=== PATIENT | female | born 2000 | race Caucasian/White ===

== ENCOUNTER → 2021-10-22 09:17 | Outpatient (CLI) | payer OTHER, SELFPAY ==
[2021-10-22 13:19] LABS: Urine N gonorrhoeae NOT DETECTED
[2021-10-22 13:49] LABS: Urine Chlamydia NOT DETECTED
== END ==
PROVIDERS: PCP Family Medicine; Visit Provider Family Medicine
DX: A74.9 Chlamydial infection, unspecified (principal)
CPT/HCPCS: 87491; 87591

== ENCOUNTER → 2022-07-13 15:06 | Outpatient (CLI) | payer OTHER, SELFPAY ==
[2022-07-13 17:14] LABS: Add Manual Diff / Slide Review NO; Basophils Absolute Auto 0 /uL (0-100); Basophils Percent Auto 0.5 % (0-2); Eosinophils Absolute Auto 200 /uL (0-450); Eosinophils Percent Auto 3.9 % (2-4); Hematocrit 39.2 % (36-46); Hemoglobin 13.7 g/dL (12.0-16.0); Lymphocytes Absolute Auto 1800 /uL (1100-4500); Lymphocytes Percent Auto 36.5 % (25-40); Mean Corpuscular HGB Conc 34.8 % (30-36); Mean Corpuscular Hemoglobin 31.6 PG (26-34); Mean Corpuscular Volume 90.7 fL (80-100); Monocytes Absolute Auto 200 /uL (0-900); Monocytes Percent Auto 4.8 % (3-14); Neutrophils Absolute Auto 2700 /uL (1500-7000); Neutrophils Percent Auto 54.3 % (50-75); Platelet Count 181 X10^3/uL (150-400); Red Blood Cell Count 4.33 X10^6/uL (4.0-5.2); Red Cell Distribution Width 12.7 % (11.6-14.8)
[2022-07-13 17:34] LABS: HEMOLYSIS < 15 (0-50); Iron 73 ug/dL (37-170)
[2022-07-13 17:40] LABS: BUN Creatinine Ratio 10.8 (6-22); Blood Urea Nitrogen 7 mg/dL (7-17); Carbon Dioxide 27 mmol/L (22-32); Chloride 101 mmol/L (98-107); Estimated Glomerular Filt Rate > 60 mL/min (>60); Glucose 93 mg/dL (70-100); HEMOLYSIS < 15 (0-50); Potassium 3.8 mmol/L (3.4-5.1); Sodium 137 mmol/L (137-145)
[2022-07-13 17:46] LABS: Percent Iron Saturation 20 % (15-50); Total Iron Binding Capacity 359 ug/dL (265-497); Transferrin 262 mg/dL (206-381)
[2022-07-13 18:13] LABS: TSH w/ Reflex to FT4 1.17 uIU/mL (0.47-4.68)
[2022-07-13 18:34] LABS: Vitamin B12 351 pg/mL (239-931)
== END ==
PROVIDERS: PCP Family Medicine; Referring Provider Physician Assistant; Visit Provider Physician Assistant
DX: R63.0 Anorexia (principal); E53.8 Deficiency of other specified B group vitamins; D50.8 Other iron deficiency anemias
CPT/HCPCS: 36415; 80048; 82607; 83540; 83550; 84443; 85025

== ENCOUNTER 2023-06-26 18:02 | Emergency (ER) | payer OTHER, SELFPAY ==
[2023-06-26] VITALS (7 sets, daily range): BP systolic 108–131; BP diastolic 55–68; PULSE 76–108; RESP 14–18; TEMP 36.8; O2SAT 96–100; BMI 19.5
--- NOTE | 2023-06-26 18:22 | ED.ABDPAIN ---
HPI - Abdominal Pain General Chief Complaint: Abdominal Pain Stated Complaint: stomach pain Time Seen by Provider: 06/26/23 18:04 Source: patient Mode of arrival: Ambulatory History of Present Illness HPI narrative: 22-year-old female presents by private vehicle from home for 1 day of lower pelvic pain that is beginning to radiate upwards into her abdomen, particularly on the right-hand side. Pain is cramping in nature and constant. Patient told nursing staff that pain started after sexual intercourse. Patient was able to take Tylenol last night in order to sleep, however throughout the day her pain has persisted and she was here today for evaluation. Reports history of IUD, denies possibility of . Related Data Home Medications Medication Instructions Recorded Confirmed levonorgestrel 17.5 mcg/24 hrs intrauterine 12/03/21 07/13/22 (5yrs) 19.5mg intrauterine device (Kyleena) Previous Rx's Medication Instructions Recorded hydroxyzine pamoate 25 mg capsule 25 mg PO DAILY PRN nausea #30 caps 07/13/22 hydrocodone 5 mg-acetaminophen 325 1 tab PO Q8H PRN pain #10 tabs 06/26/23 mg tablet Allergies Allergy/AdvReac Type Severity Reaction Status Date / Time No Known Drug Allergies Allergy Verified 07/13/22 14:15 Review of Systems Review of Systems Narrative: See HPI Patient History Social History housing: house seatbelt use: always helmet use: Yes water heater temp set < 120 deg: Yes working smoke detector in home: Yes fire extinguisher in home: Yes carbon monox detector in home: No firearms in home: No Smoking Status: Never smoker second hand exposure: No alcohol intake: never substance use type: does not use well-balanced diet: daily or most days daily servings fruits/ve-4 caffeine: Yes Smoking Status: Never smoker alcohol intake frequency: a few times a month Substance Use Type: marijuana Exam Initial Vital Signs Initial Vital Signs: Vital Signs Temperature 98.2 F 06/26/23 18:04 Pulse Rate 108 H 06/26/23 18:04 Respiratory Rate 18 06/26/23 18:04 Blood Pressure 131/57 L 06/26/23 18:04 Pulse Oximetry 100 06/26/23 18:04 Oxygen Delivery Method Room Air 06/26/23 18:04 Const: Awake, alert, uncomfortable, in pain Cardiac: Tachycardia, regular rhythm RESP: unlabored, clear bilaterally, no wheezing GI: Soft, tenderness to both light and deep palpation in bilateral lower quadrants and right upper quadrant Skin: Warm, Dry, intact, no rashes Neuro: AO x3, CN II-XII grossly intact, moves all extremities Course Orders Ordered: ED Orders 06/26/23 18:21 US abdomen limited Stat 06/26/23 18:23 Urine Culture Stat Urine Microscopic Stat 06/26/23 18:28 CBC Auto Diff [Complete Blood Count AUTO DIFF] Stat CMP [Comprehensive Metabolic Panel] Stat Lactate (Lactic Acid) Stat Lipase Stat 06/26/23 19:05 CT abdomen pelvis w con Stat US pelvic complete Stat Discontinued Medications Hydrocodone Bitart/Acetaminophen (Hydrocodone/Acet 5/325 Prepack) 1 bottle MISC DIRECTED ONE Stop: 06/26/23 21:07 Last Admin: 06/26/23 21:19 Dose: 1 bottle Documented By: HAILEY Hydromorphone HCl (Hydromorphone 1 Mg Inj) 1 mg IV NOW ONE Stop: 06/26/23 19:08 Last Admin: 06/26/23 19:11 Dose: 1 mg Documented By: HAILEY Sodium Chloride (Normal Saline 0.9%) 1,000 mls @ 1,000 mls/hr IV BOLUS ONE Stop: 06/26/23 19:20 Last Infusion: 06/26/23 19:34 Dose: Infused Documented By: Admin: 06/26/23 18:41 Dose: 1,000 mls/hr Documented By: HAILEY Morphine Sulfate (Morphine 4 Mg/Ml Inj) 4 mg IV NOW ONE Stop: 06/26/23 18:22 Last Admin: 06/26/23 18:52 Dose: 4 mg Documented By: HAILEY Ondansetron HCl (Ondansetron 4 Mg Odt) 4 mg SL NOW PRN PRN Reason: Nausea And Vomiting Ondansetron HCl (Ondansetron 4 Mg/2 Ml Inj) 4 mg IV NOW PRN PRN Reason: Nausea And Vomiting Vital Signs Vital signs: Vital Signs - 8 hr 06/26/23 18:48 06/26/23 19:00 06/26/23 19:30 Pulse Rate Respiratory Rate 18 Blood Pressure 115/58 L 114/68 109/66 Pulse Oximetry Oxygen Delivery Method 06/26/23 20:06 06/26/23 20:06 06/26/23 20:30 Pulse Rate 96 H Respiratory Rate Blood Pressure 109/62 108/55 L Pulse Oximetry 100 Oxygen Delivery Method 06/26/23 20:30 06/26/23 21:24 Pulse Rate 89 76 Respiratory Rate 18 14 Blood Pressure 109/59 L Pulse Oximetry 96 97 Oxygen Delivery Method Room Air MDM - Abdominal Pain Differential Diagnosis Differential diagnosis: Likely abdominal pain, acute appendicitis and calculus of kidney Lab Data 06/26/23 18:28 06/26/23 18:28 Labs: Lab Results 06/26/23 06/26/23 Range/Units 18:23 18:28 WBC 8.5 (4.5-11.0) X10^3/uL RBC 3.92 L (4.0-5.2) X10^6/uL Hgb 12.5 (12.0-16.0) g/dL Hct 36.4 (36-46) % MCV 92.7 (80-100) fL MCH 31.8 (26-34) PG MCHC 34.3 (30-36) % RDW 13.2 (11.6-14.8) % Plt Count 196 (150-400) X10^3/uL Neut % (Auto) 84.2 H (50-75) % Lymph % (Auto) 10.9 L (25-40) % [place] % (Auto) 4.1 (3-14) % Eos % (Auto) 0.7 L (2-4) % Baso % (Auto) 0.1 (0-2) % Neut # (Auto) 7100 H (4525-5247) /uL Lymph # (Auto) 900 L (6643-3172) /uL [place] # (Auto) 400 (0-900) /uL Eos # (Auto) 100 (0-450) /uL Baso # (Auto) 0 (0-100) /uL Sodium 138 (137-145) mmol/L Potassium 3.6 (3.4-5.1) mmol/L Chloride 107 (98-107) mmol/L Carbon Dioxide 24 (22-32) mmol/L BUN 8 (7-17) mg/dL Creatinine 0.66 (0.52-1.04) mg/dL Estimated GFR > 60 (>60) mL/min BUN/Creatinine Ratio 12.1 (6-22) Glucose 105 H (70-100) mg/dL Lactate 0.8 (0.7-2.1) mmol/L Calcium 9.0 (8.4-10.2) mg/dL Total Bilirubin 1.0 (0.2-1.3) mg/dL AST 21 (14-36) IU/L ALT 12 (<35) IU/L Alkaline Phosphatase 54 (38-126) U/L Total Protein 7.4 (6.3-8.2) g/dL Albumin 4.4 (3.5-5.0) g/dL Globulin 3.0 (1.7-4.1) g/dL Albumin/Globulin Ratio 1.5 (1.0-2.8) Lipase 52 (23-300) U/L Urine RBC 0-1/hpf (0-5/HPF) Urine WBC 0-1/hpf (0-5/HPF) Ur Squamous Epith Cells 5-10 /hpf H (0-5/HPF) Amorphous Sediment 1+ Urine Bacteria Occasional (0-1) (None) Urine Mucus 2+ H (Negative) Ur Culture Indicated? Cult not indicated Vol Urine Centrifuged 10ml (spun) Point of care testing: Point of Care Testing Test Results Negative Urine Dip Bedside Urine Glucose Negative Bedside Urine Bilirubin - Negative Bedside Urine Ketone +/- 5 Urine Specific [place] 1.015 Bedside Urine Occult Blood - Negative Bedside Urine pH 8.5 Bedside Urine Protein +/- 15 Bedside Urine Urobilinogen - Negative Bedside Urine Nitrite - Negative Bedside Urine Leukocytes - Negative Esterase Imaging Data US - abdomen: Radiologist's Impression: PROCEDURE: US ABDOMEN LIMITED INDICATIONS: RUQ PAIN TECHNIQUE: Real-time scanning was performed of the abdominal and retroperitoneal organs, with image documentation. COMPARISON: None. FINDINGS: Liver: Liver is normal in size and homogeneous in echotexture. Visualized portal vein appears patent. Gallbladder: Gallbladder is normal in sonographic appearance without gallstones, gallbladder wall thickening, pericholecystic fluid, or abnormal sonographic Coates's. Biliary ducts: Intrahepatic bile ducts are non-dilated. Extrahepatic bile duct caliber measures 3 mm. Normal is 6-7 mm or less in diameter, or 10 mm or less post-cholecystectomy. Pancreas: Visualized portions of the pancreas are sonographically normal. IVC: Intrahepatic inferior vena cava is patent. Miscellaneous: Scattered ascites noted in all 4 quadrants. IMPRESSION: Scattered ascites throughout the abdomen and pelvis. Otherwise, no acute sonographic abnormalities identified in the abdomen. Dictated by: Vlad Barboza M.D. on 06/26/2023 at 20:20 Approved by: Vlad Barboza M.D. on 06/26/2023 at 20:22 US - EXPANDED FUNCTION DENTAL ASSISTANT: Radiologist's Impression: PROCEDURE: US PELVIC COMPLETE INDICATIONS: LOWER PELVIC PAIN, FREE FLUID IN ABDOMEN TECHNIQUE: Real-time scanning was performed of the pelvic organs, with image documentation. Additional endovaginal scanning was necessary due to incomplete visualization of the adnexal and endometrial structures by transabdominal scanning. COMPARISON: None. FINDINGS: Uterus: Uterus is anteverted and normal in size at 7.4 x 3.3 x 4.5 cm. The myometrium is homogeneous. The endometrium measures 4 mm combined thickness. An intrauterine device is identified within the endometrial cavity and appears appropriately positioned. Ovaries: The right ovary measures 2.5 x 2.0 x 2.8 cm, with a calculated ovarian volume of 7.3 cc. There is a simple 2.0 x 1.3 x 2.0 cm simple right ovarian cyst. There is normal vascular flow identified in the right ovary. The left ovary and adnexa were not well visualized. A definite left ovary could not be delineated definitively. The most likely candidate appears enlarged with no detectable vascular flow. This measures approximately 7.8 x 3.7 x 7.7 cm. Other: Large amount of scattered pelvic free fluid more substantial on the right side versus the left. IMPRESSION: 1. A definite left ovary/adnexa could not be delineated. Most likely candidate appears to be abnormal and enlarged measuring 7.8 x 3.7 x 7.7 cm. No visualized vascular flow. Etiologies include possible left ovarian torsion versus large tubal ovarian abscess. Consider further evaluation with cross-sectional imaging. 2. Large amount of scattered pelvic free fluid more substantial on the right side. 3. Unremarkable appearance of the right ovary with normal vascular flow. 4. Normal evaluation of the uterus with appropriate positioning of intrauterine device. Preliminary findings were reported to the ordering physician by the information technology consultant at time of study completion. We strive to produce accurate, complete, and clear reports of imaging services. To assist us in improving patient care, this report was composed using standard report templates and voice recognition software. Therefore, it may contain abnormal punctuation, insertions and/or omissions. Occasional wrong-word or sound-alike substitutions may occur. Though we review the report and make efforts to correct it, we do recommend that the report be read carefully in proper context to recognize any text inaccuracies. Dictated by: Vlad Barboza M.D. on 06/26/2023 at 20:22 Approved by: Vlad Barboza M.D. on 06/26/2023 at 20:28 CT scan - abdomen/pelvis: Radiologist's Impression: PROCEDURE: CT ABDOMEN PELVIS W CON INDICATIONS: LOWER ABD PAIN, FREE FLUID PER US TECHNIQUE: After the administration of intravenous contrast, axial sections acquired from the lung bases to the pubic symphysis. Coronal and sagittal reformats were performed. For radiation dose reduction, the following was used: automated exposure control, adjustment of mA and/or kV according to patient size. COMPARISON: None. FINDINGS: Image quality: Diagnostic. Lower Chest: No significant findings. ABDOMEN: Liver: No solid mass. Gallbladder: No radiopaque gallstones or wall thickening. Biliary ducts: No biliary dilation. Pancreas: No ductal dilation. Spleen: Size is within normal limits. Adrenal Glands: No adrenal nodules. Kidneys and Ureters: No hydronephrosis. No solid mass. No complex renal cystic lesion which requires follow up. Stomach and Bowel: Normal colonic caliber, without significant wall thickening. Peritoneum: Small to moderate volume ascites. No free air. Ventral Wall: No significant ventral hernia. Abdominal Nodes: No retroperitoneal or mesenteric adenopathy by size criteria. Vessels: Aorta and inferior vena cava are normal in size. PELVIS: Pelvic Organs: Intrauterine device in place. Complex higher attenuation structure in the left adnexa measuring 7.3 x 9.4 x 3.9 cm is not well evaluated better seen on prior pelvic ultrasound.. Bladder: No bladder wall thickening, accounting for underdistention. Pelvic Nodes: No enlarged lymph nodes. Miscellaneous: No inguinal hernias are seen. Bones: No aggressive osseous abnormality. IMPRESSION: 1. Complex high attenuation structure within the left adnexa is better evaluated on prior pelvic ultrasound. 2. Small to moderate volume ascites. Dictated by: Lorenzo Albert M.D. on 06/26/2023 at 20:57 Approved by: Lorenzo Albert M.D. on 06/26/2023 at 21:02 MDM Narrative Medical decision making narrative: Pelvic cramping and pain after sexual intercourse. Patient does appear to be very uncomfortable and has fairly significant tenderness to palpation on abdominal exam. Pain meds, laboratory work, imaging ordered. vascular technician pulled me aside to tell me that the patient's gallbladder looked normal on ultrasound, however there did appear to be free fluid in the upper and lower quadrants of her abdomen. Based on patient's description of symptoms this is likely in origin and a formal pelvic ultrasound was ordered. Patient continuing to endorse pain, additional IV pain medications ordered. Right ovary appears normal on ultrasound, left ovary poorly visualized due to free fluid. CT of the abdomen and pelvis shows free fluid with no further characterization of left ovary. Case discussed with Dr. Jones of OBGYN, who came to the emergency department to assess the patient. Shared decision-making had with OBGYN in patient. Patient elected to go home with outpatient follow up scheduled at 1:00 p.m. tomorrow. She was given pain medications and counseled that if she was unable to control her pain at home she should return to the emergency department for assessment. Discharge Plan Departure Patient Disposition: Home Clinical Impression: Free fluid in pelvis, Left ovarian enlargement Instructions: DI for Ovarian Cyst Activity Restrictions/Additional Instructions: Your laboratory work was normal, you have an abnormal finding in your left ovary that is yet indeterminate, but may likely be a ruptured cyst. Use the prepack medication for pain. You may also take this with 400 mg of ibuprofen. You may take an additional tablet of Tylenol as well, making sure that your maximum daily dose of Tylenol is no more than 4000 mg. Prescriptions: New hydrocodone-acetaminophen 5-325 mg tablet 1 tab PO Q8H PRN (Reason: pain) Qty: 10 0RF No Action hydroxyzine pamoate 25 mg capsule 25 mg PO DAILY PRN (Reason: nausea) Qty: 30 1RF Kyleena 17.5 mcg/24 hrs (5 yrs) 19.5 mg intrauterine device intrauterine Rx Instructions: Inserted 11/05/21 Referrals: Deangelo Vaz MD [Primary Care Provider] - Stand Alone Forms: Patient Portal/API
[2023-06-26 18:32] LABS: RBC Urine 0-1/HPF (0-5/HPF); Urine Volume 10mL (spun)
[2023-06-26 18:33] LABS: Amorphous Sediment Urine 1+; Bacteria Urine Occasional (0-1); Culture Indicated Urine Cult Not Indicated; Mucus Urine 2+ (Negative); Squamous Epithelial Cell Urine 5-10 /HPF (0-5/HPF); WBC Urine 0-1/HPF (0-5/HPF)
[2023-06-26 18:36] LABS: Add Manual Diff / Slide Review NO; Basophils Absolute Auto 0 /uL (0-100); Basophils Percent Auto 0.1 % (0-2); Eosinophils Absolute Auto 100 /uL (0-450); Eosinophils Percent Auto 0.7 % (2-4); Hematocrit 36.4 % (36-46); Hemoglobin 12.5 g/dL (12.0-16.0); Lymphocytes Absolute Auto 900 /uL (1100-4500); Lymphocytes Percent Auto 10.9 % (25-40); Mean Corpuscular HGB Conc 34.3 % (30-36); Mean Corpuscular Hemoglobin 31.8 PG (26-34); Mean Corpuscular Volume 92.7 fL (80-100); Monocytes Absolute Auto 400 /uL (0-900); Monocytes Percent Auto 4.1 % (3-14); Neutrophils Absolute Auto 7100 /uL (1500-7000); Neutrophils Percent Auto 84.2 % (50-75); Platelet Count 196 X10^3/uL (150-400); Red Blood Cell Count 3.92 X10^6/uL (4.0-5.2); Red Cell Distribution Width 13.2 % (11.6-14.8); White Blood Cell Count 8.5 X10^3/uL (4.5-11.0)
[2023-06-26] MEDS: SODIUM CHLORIDE 0.9% 1,000 ML 1000 ML IV (18:41)
[2023-06-26 18:46] LABS: Lactate (Lactic Acid) 0.8 mmol/L (0.7-2.1)
[2023-06-26 18:47] LABS: Alanine Aminotransferase 12 IU/L (<35); Albumin 4.4 g/dL (3.5-5.0); Albumin Globulin Ratio 1.5 (1.0-2.8); Alkaline Phosphatase 54 U/L (38-126); Aspartate Aminotransferase 21 IU/L (14-36); BUN Creatinine Ratio 12.1 (6-22); Blood Urea Nitrogen 8 mg/dL (7-17); Carbon Dioxide 24 mmol/L (22-32); Chloride 107 mmol/L (98-107); Estimated Glomerular Filt Rate > 60 mL/min (>60); Glucose 105 mg/dL (70-100); HEMOLYSIS < 15 (0-50); Lipase 52 U/L (23-300); Potassium 3.6 mmol/L (3.4-5.1); Sodium 138 mmol/L (137-145); Total Protein 7.4 g/dL (6.3-8.2)
[2023-06-26] MEDS: MORPHINE 4 MG/ML INJ IV (18:52)
--- NOTE | 2023-06-26 19:05 | DI.US.S_ITS ---
PROCEDURE: US PELVIC COMPLETE INDICATIONS: LOWER PELVIC PAIN, FREE FLUID IN ABDOMEN TECHNIQUE: Real-time scanning was performed of the pelvic organs, with image documentation. Additional endovaginal scanning was necessary due to incomplete visualization of the adnexal and endometrial structures by transabdominal scanning. COMPARISON: None. FINDINGS: Uterus: Uterus is anteverted and normal in size at 7.4 x 3.3 x 4.5 cm. The myometrium is homogeneous. The endometrium measures 4 mm combined thickness. An intrauterine device is identified within the endometrial cavity and appears appropriately positioned. Ovaries: The right ovary measures 2.5 x 2.0 x 2.8 cm, with a calculated ovarian volume of 7.3 cc. There is a simple 2.0 x 1.3 x 2.0 cm simple right ovarian cyst. There is normal vascular flow identified in the right ovary. The left ovary and adnexa were not well visualized. A definite left ovary could not be delineated definitively. The most likely candidate appears enlarged with no detectable vascular flow. This measures approximately 7.8 x 3.7 x 7.7 cm. Other: Large amount of scattered pelvic free fluid more substantial on the right side versus the left. IMPRESSION: 1. A definite left ovary/adnexa could not be delineated. Most likely candidate appears to be abnormal and enlarged measuring 7.8 x 3.7 x 7.7 cm. No visualized vascular flow. Etiologies include possible left ovarian torsion versus large tubal ovarian abscess. Consider further evaluation with cross-sectional imaging. 2. Large amount of scattered pelvic free fluid more substantial on the right side. 3. Unremarkable appearance of the right ovary with normal vascular flow. 4. Normal evaluation of the uterus with appropriate positioning of intrauterine device. Preliminary findings were reported to the ordering physician by the lamination machine operator at time of study completion. We strive to produce accurate, complete, and clear reports of imaging services. To assist us in improving patient care, this report was composed using standard report templates and voice recognition software. Therefore, it may contain abnormal punctuation, insertions and/or omissions. Occasional wrong-word or sound-alike substitutions may occur. Though we review the report and make efforts to correct it, we do recommend that the report be read carefully in proper context to recognize any text inaccuracies. Dictated by: Vlad Barboza M.D. on 06/26/2023 at 20:22 Approved by: Vlad Barboza M.D. on 06/26/2023 at 20:28
--- NOTE | 2023-06-26 19:05 | DI.CT.S_ITS ---
PROCEDURE: CT ABDOMEN PELVIS W CON INDICATIONS: LOWER ABD PAIN, FREE FLUID PER US TECHNIQUE: After the administration of intravenous contrast, axial sections acquired from the lung bases to the pubic symphysis. Coronal and sagittal reformats were performed. For radiation dose reduction, the following was used: automated exposure control, adjustment of mA and/or kV according to patient size. COMPARISON: None. FINDINGS: Image quality: Diagnostic. Lower Chest: No significant findings. ABDOMEN: Liver: No solid mass. Gallbladder: No radiopaque gallstones or wall thickening. Biliary ducts: No biliary dilation. Pancreas: No ductal dilation. Spleen: Size is within normal limits. Adrenal Glands: No adrenal nodules. Kidneys and Ureters: No hydronephrosis. No solid mass. No complex renal cystic lesion which requires follow up. Stomach and Bowel: Normal colonic caliber, without significant wall thickening. Peritoneum: Small to moderate volume ascites. No free air. Ventral Wall: No significant ventral hernia. Abdominal Nodes: No retroperitoneal or mesenteric adenopathy by size criteria. Vessels: Aorta and inferior vena cava are normal in size. PELVIS: Pelvic Organs: Intrauterine device in place. Complex higher attenuation structure in the left adnexa measuring 7.3 x 9.4 x 3.9 cm is not well evaluated better seen on prior pelvic ultrasound.. Bladder: No bladder wall thickening, accounting for underdistention. Pelvic Nodes: No enlarged lymph nodes. Miscellaneous: No inguinal hernias are seen. Bones: No aggressive osseous abnormality. IMPRESSION: 1. Complex high attenuation structure within the left adnexa is better evaluated on prior pelvic ultrasound. 2. Small to moderate volume ascites. Dictated by: Lorenzo Albert M.D. on 06/26/2023 at 20:57 Approved by: Lorenzo Albert M.D. on 06/26/2023 at 21:02
[2023-06-26] MEDS: HYDROMORPHONE 1 MG INJ IV (19:11)
--- NOTE | 2023-06-26 21:05 | PM.CN ---
History of Present Illness Consult details Date Patient Seen: 06/26/23 Time Patient Seen: 21:05 Chief complaint: stomach pain Reason for consult: possible ovarian torsion Requesting provider: Vilma Workman Narrative: 22yo F presented to the ER tonight for ongoing abdominal pain that started last night. She states the pain came on around 10pm after intercourse, then she was able to sleep. Today however the pain has been constant, dull cramping pain, which has spread from her pelvis up her right side to her right ribs, making it difficult to take deep breaths. She has been laying down most of the day today. Denies sharp pain, nausea, or vomiting. Meds Home Medications and Allergies Home Medications Medication Instructions Recorded Confirmed Type levonorgestrel 17.5 mcg/24 hrs intrauterine 12/03/21 07/13/22 History (5yrs) 19.5mg intrauterine device (Kyleena) hydroxyzine pamoate 25 mg capsule 25 mg PO DAILY PRN nausea #30 caps 07/13/22 07/13/22 Rx hydrocodone 5 mg-acetaminophen 325 1 tab PO Q8H PRN pain #10 tabs 06/26/23 Rx mg tablet Allergies Allergy/AdvReac Type Severity Reaction Status Date / Time No Known Drug Allergies Allergy Verified 07/13/22 14:15 Review of Systems Review of Systems ROS: Yes All systems reviewed with the patient and are negative except as otherwise documented Exam Vital Signs (past 8 hours): - 06/26/23 18:04 06/26/23 18:48 06/26/23 19:00 Temperature 98.2 F Pulse Rate 108 H Respiratory Rate 18 Blood Pressure 131/57 L 115/58 L 114/68 Pulse Oximetry 100 Oxygen Delivery Method Room Air 06/26/23 19:30 06/26/23 20:06 06/26/23 20:06 Temperature Pulse Rate 96 H Respiratory Rate 18 Blood Pressure 109/66 109/62 Pulse Oximetry 100 Oxygen Delivery Method 06/26/23 20:30 06/26/23 20:30 Temperature Pulse Rate 89 Respiratory Rate 18 Blood Pressure 108/55 L Pulse Oximetry 96 Oxygen Delivery Method Oxygen Delivery Method Room Air Const General: cooperative, healthy appearing and No acute distress Resp Effort & Inspection: normal respiratory effort and able to speak in complete sentences GI Other: soft, tender to palpation of bilateral lower quadrants, no rebound or guarding Objective Imaging US - abdomen: Radiologist's impression: FINDINGS: Uterus: Uterus is anteverted and normal in size at 7.4 x 3.3 x 4.5 cm. The myometrium is homogeneous. The endometrium measures 4 mm combined thickness. An intrauterine device is identified within the endometrial cavity and appears appropriately positioned. Ovaries: The right ovary measures 2.5 x 2.0 x 2.8 cm, with a calculated ovarian volume of 7.3 cc. There is a simple 2.0 x 1.3 x 2.0 cm simple right ovarian cyst. There is normal vascular flow identified in the right ovary. The left ovary and adnexa were not well visualized. A definite left ovary could not be delineated definitively. The most likely candidate appears enlarged with no detectable vascular flow. This measures approximately 7.8 x 3.7 x 7.7 cm. Other: Large amount of scattered pelvic free fluid more substantial on the right side versus the left. IMPRESSION: 1. A definite left ovary/adnexa could not be delineated. Most likely candidate appears to be abnormal and enlarged measuring 7.8 x 3.7 x 7.7 cm. No visualized vascular flow. Etiologies include possible left ovarian torsion versus large tubal ovarian abscess. Consider further evaluation with cross-sectional imaging. 2. Large amount of scattered pelvic free fluid more substantial on the right side. 3. Unremarkable appearance of the right ovary with normal vascular flow. 4. Normal evaluation of the uterus with appropriate positioning of intrauterine device. Labs 06/26/23 18:28 06/26/23 18:28 Labs: Laboratory Results - last 24 hr 06/26/23 06/26/23 18:23 18:28 WBC 8.5 RBC 3.92 L Hgb 12.5 Hct 36.4 MCV 92.7 MCH 31.8 MCHC 34.3 RDW 13.2 Plt Count 196 Neut % (Auto) 84.2 H Lymph % (Auto) 10.9 L Greenlee % (Auto) 4.1 Eos % (Auto) 0.7 L Baso % (Auto) 0.1 Neut # (Auto) 7100 H Lymph # (Auto) 900 L Greenlee # (Auto) 400 Eos # (Auto) 100 Baso # (Auto) 0 Sodium 138 Potassium 3.6 Chloride 107 Carbon Dioxide 24 BUN 8 Creatinine 0.66 Estimated GFR > 60 BUN/Creatinine Ratio 12.1 Glucose 105 H Lactate 0.8 Calcium 9.0 Total Bilirubin 1.0 AST 21 ALT 12 Alkaline Phosphatase 54 Total Protein 7.4 Albumin 4.4 Globulin 3.0 Albumin/Globulin Ratio 1.5 Lipase 52 Urine RBC 0-1/hpf Urine WBC 0-1/hpf Ur Squamous Epith Cells 5-10 /hpf H Amorphous Sediment 1+ Urine Bacteria Occasional (0-1) Urine Mucus 2+ H Ur Culture Indicated? Cult not indicated Vol Urine Centrifuged 10ml (spun) PFSH Social History housing: house Safety seatbelt use: always helmet use: Yes water heater temp set < 120 deg: Yes working smoke detector in home: Yes fire extinguisher in home: Yes carbon monox detector in home: No firearms in home: No Tobacco & Substance Use Smoking Status: Never smoker second hand exposure: No alcohol intake: never substance use type: does not use Diet and Exercise well-balanced diet: daily or most days daily servings fruits/ve-4 caffeine: Yes Assessment & Plan Assessment and plan (1) Pelvic pain: Status: Acute Assessment & Plan narrative: 22yo F with acute lower pelvic pain with ER reported negative test. Differential includes ruptured ovarian cyst vs. ovarian torsion. Afebrile, normal white count make infectious etiology less likely. Cramping pain over the day today is more consistent with ruptured ovarian cyst rather than ovarian torsion. Discussed risk/benefit of expectant management vs. surgical intervention, and I advised patient that expectant management would be appropriate at this time. Patient agrees with this plan. -recommend d/c home tonight with pain medication -advised pt to return to the ER immediately if her pain acutely worsens or she develops nausea/vomiting -will have patient follow-up with me tomorrow in clinic at 1pm for re-evaluation -all her questions were answered at this time Time Spent With Patient Time with patient: less than 30 minutes
[2023-06-26] MEDS: HYDROCODONE/ACET 5/325 PREPACK 1 BOTTLE MISC (21:19)
== END 2023-06-26 21:26 | disposition home or self-care (01) ==
PROVIDERS: Emergency Provider Emergency Medicine; PCP Family Medicine
DX: R18.8 Other ascites (principal); N83.8 Other noninflammatory disorders of ovary, fallopian tube and broad ligament; R10.2 Pelvic and perineal pain
CPT/HCPCS: 36415; 74177; 76705; 76830; 76856; 80053; 81003; 81015; 81025; 83605; 83690; 85025; 87086; 93976; 96361; 96374; 96375; 99282; 99284; J1170; J2270